=== PATIENT | female | born 1965 | race Caucasian/White ===

== ENCOUNTER 2023-07-29 19:30 | Emergency (ER) | payer SELFPAY ==
[2023-07-29 19:39] VITALS: BP 163/98; PULSE 71; RESP 18; TEMP 98.2; BMI 31.1
== END 2023-07-29 22:59 | disposition home or self-care (01) ==
LOC: JERFT 19:30 → JER 19:30 → JERFT 22:59
DX: N60.01 Solitary cyst of right breast (principal); L02.213 Cutaneous abscess of chest wall; L03.313 Cellulitis of chest wall
CPT/HCPCS: 99283-25